=== PATIENT | male | born 2000 | race Caucasian/White ===

== ENCOUNTER 2019-02-04 12:11 | Emergency (ER) | payer MEDICAID ==
[~2019-02-04] VITALS: Ht 175.3 cm; Wt 100.0 kg
[2019-02-04 13:09] VITALS: BP 168/77
[2019-02-04] MEDS ORDERED: ACETAMINOPHEN 325MG TABLET PO ONE (14:30)
== END 2019-02-04 16:34 | disposition home or self-care (01) ==
LOC: ER 12:11
DX: S02.40CA Maxillary fracture, right side, initial encounter for closed fracture (principal); S01.81XA Laceration without foreign body of other part of head, initial encounter; Y08.89XA Assault by other specified means, initial encounter; Y93.89 Activity, other specified; Y92.89 Other specified places as the place of occurrence of the external cause; Y99.8 Other external cause status
CPT/HCPCS: 12011; 70486; 99284